=== PATIENT | female | born 1995 | race Caucasian/White ===

== ENCOUNTER 2017-03-13 23:42 | Emergency (ER) | payer OTHER ==
[~2017-03-13] VITALS: Ht 160 cm; Wt 65.8 kg
[2017-03-14] MEDS ORDERED: PERCOCET 5-3251 EACH PO (00:59)
== END 2017-03-14 01:35 | disposition home or self-care (01) ==
LOC: ED 23:42
DX: T23.252A Burn of second degree of left palm, initial encounter (principal); M32.9 Systemic lupus erythematosus, unspecified; Z88.2 Allergy status to sulfonamides; X02.0XXA Exposure to flames in controlled fire in building or structure, initial encounter
CPT/HCPCS: 16020; 90471; 96374; 96375; 99283; J1170; J2405

== ENCOUNTER 2017-03-14 13:12 | Emergency (ER) | payer OTHER ==
[~2017-03-14] VITALS: Ht 160 cm; Wt 65.8 kg
[~2017-03-14 13:12] MED LIST: PERCOCET 5-3251 EACH PO
== END 2017-03-14 15:06 | disposition home or self-care (01) ==
LOC: ED 13:12
DX: T23.202D Burn of second degree of left hand, unspecified site, subsequent encounter (principal); X03.0XXD Exposure to flames in controlled fire, not in building or structure, subsequent encounter; Z88.2 Allergy status to sulfonamides
CPT/HCPCS: 99282

== ENCOUNTER 2017-03-15 13:39 | Emergency (ER) | payer OTHER ==
[~2017-03-15] VITALS: Ht 160 cm; Wt 65.8 kg
== END 2017-03-15 14:06 | disposition home or self-care (01) ==
LOC: ED 13:39
DX: T23.302D Burn of third degree of left hand, unspecified site, subsequent encounter (principal); X08.8XXD Exposure to other specified smoke, fire and flames, subsequent encounter; Z88.2 Allergy status to sulfonamides
CPT/HCPCS: 99281

== ENCOUNTER 2017-03-18 16:31 | Emergency (ER) | payer OTHER ==
[~2017-03-18] VITALS: Ht 160 cm; Wt 65.8 kg
[2017-03-18] MEDS ORDERED: PERCOCET 5-3251 EACH PO (18:11)
== END 2017-03-18 18:40 | disposition home or self-care (01) ==
LOC: ED 16:31
PROC: 2W2DX4Z Dressing of Left Lower Arm using Bandage (ICD-10-PCS; principal; 2017-03-18)
DX: T23.072D Burn of unspecified degree of left wrist, subsequent encounter (principal); Z88.2 Allergy status to sulfonamides
CPT/HCPCS: 16020; 99283

== ENCOUNTER 2017-03-23 13:26 | Emergency (ER) | payer OTHER ==
[~2017-03-23] VITALS: Ht 160 cm; Wt 65.8 kg
== END 2017-03-23 15:09 | disposition home or self-care (01) ==
LOC: ED 13:26
DX: T23.202D Burn of second degree of left hand, unspecified site, subsequent encounter (principal); Z88.2 Allergy status to sulfonamides
CPT/HCPCS: 99282

== ENCOUNTER → 2017-06-30 | Emergency (ER) | payer SELFPAY ==
[~2017-06-30] VITALS: Ht 160 cm; Wt 65.8 kg
[~2017-06-30] MED LIST changes: +ACETAMINOPHEN-1 EAC1 PO; +FLAGYL500 MG PO; +LEVAQUIN500 MG PO; +TRAMADOL HCL50 MG PO
== END | disposition home or self-care (01) ==
LOC: ED 00:03
PROC: 0HDQXZZ Extraction of Finger Nail, External Approach (ICD-10-PCS; principal; 2017-06-30)
DX: S61.306A Unspecified open wound of right little finger with damage to nail, initial encounter (principal); Z88.2 Allergy status to sulfonamides; Z91.040 Latex allergy status; X58.XXXA Exposure to other specified factors, initial encounter
CPT/HCPCS: 11730; 99283